=== PATIENT | female | born 1985 | race Caucasian/White ===

== ENCOUNTER 2018-11-07 14:03 | Emergency (ER) | payer MEDICAID, MEDICARE ==
[~2018-11-07] VITALS: Ht 162.6 cm; Wt 95.3 kg
[2018-11-07 14:19] VITALS: BP_SYST 143
--- NOTE | 2018-11-07 14:25 | NUR ---
Patient triaged and placed in waiting room. VSS and patient appears in no acute distress at this time. Accompanied by SELF, awaiting available bed, and MD notified of need for MSE.
--- NOTE | 2018-11-07 16:29 | NUR ---
Pt placed in bed 8
--- NOTE | 2018-11-07 16:32 | NUR ---
Pt AAOx4 ambulated into ED c/o 08/07 L shoulder pain x 1 month with increasing pain and numbness today. Pt denies trauma, but states it may be related to overuse. Pain relieved when L arm supported. Sling provided at triage. No other injuries/complaints per pt/noted. Will continue to monitor.
--- NOTE | 2018-11-07 17:21 | NUR ---
Pt resting comfortably in bed with no signs of distress. Will continue to monitor.
--- NOTE | 2018-11-07 18:14 | NUR ---
ER Dr. Galvan at bedside examining patient.
[2018-11-07] MEDS: KETOROLAC TROMETHAMINE 60 MG/2 ML VIAL IM ONE (18:22)
--- NOTE | 2018-11-07 18:24 | NUR ---
Toradol 60mg IM to R deltoid administered. Pt tolerated well. No adverse reactions noted. Will continue to monitor.
--- NOTE | 2018-11-07 19:10 | NUR ---
Patient given written and verbal discharge instructions and verbalizes understanding. ER MD Galvan discussed with patient the results and treatment provided. Patient in stable condition. ID arm band removed. Rx of Ackerman given. Patient educated on pain management and to follow up with PMD. Pain Scale 0. Opportunity for questions provided and answered. Medication side effect fact sheet provided.
[2018-11-07 19:11] VITALS: BP_SYST 132
== END 2018-11-07 19:10 | disposition home or self-care (01) ==
LOC: SED 14:03
DX: M75.92 Shoulder lesion, unspecified, left shoulder (principal); R03.0 Elevated blood-pressure reading, without diagnosis of hypertension; Z88.0 Allergy status to penicillin
CPT/HCPCS: 73030; 96372; 99283; J1885

== ENCOUNTER 2021-04-28 23:27 | Emergency (ER) | payer MEDICAID ==
[~2021-04-28] VITALS: Ht 162.6 cm; Wt 90.7 kg
[2021-04-28 23:45] VITALS: BP_SYST 129
[2021-04-29] MEDS ORDERED: NACL 0.9% 1,000 ML IV ONE
[2021-04-29 00:32] LABS: BASOPHILS # (AUTO) 0.2 K/uL (0.0-0.2); BASOPHILS % (AUTO) 1.9 % (0.0-2.0); EOSINOPHILS # (AUTO) 0.1 K/uL (0.0-0.4); HEMOGLOBIN 11.9 g/dL (12.0-16.0); LYMPHOCYTES # (AUTO) 2.7 K/uL (1.0-5.5); LYMPHOCYTES % (AUTO) 25.4 % (20.5-51.5); MEAN CORPUSCULAR HEMOGLOBIN 32 pg (27-31); MEAN CORPUSCULAR HGB CONC 34 % (32-36); MEAN CORPUSCULAR VOLUME 93 fL (79.0-98.0); MONOCYTES # (AUTO) 0.4 K/uL (0.0-1.0); NEUTROPHILS # (AUTO) 7.3 K/uL (1.8-7.7); NEUTROPHILS % (AUTO) 67.7 % (40.0-70.0); PLATELET COUNT (AUTO) 206 K/uL (130-430); RED BLOOD CELL COUNT(AUTO) 3.74 MIL/uL (4.2-6.2); RED CELL DISTRIBUTION WIDTH 12.6 % (9.0-15.0); WHITE BLOOD COUNT (AUTO) 10.8 K/uL (4.8-10.8)
[2021-04-29 00:38] LABS: BILIRUBIN,URINE NEGATIVE (NEGATIVE); BLOOD, URINE 1+ (NEGATIVE); CLARITY/URINE CLEAR (CLEAR); COLOR,URINE YELLOW (YELLOW); GLUCOSE,URINE NEGATIVE (NEGATIVE); KETONES,URINE NEGATIVE (NEGATIVE); LEUKOCYTE ESTERASE ,URINE NEGATIVE (NEGATIVE); NITRITE, URINE NEGATIVE (NEGATIVE); PROTEIN URINE NEGATIVE (NEGATIVE); UROBILINOGEN,URINE 0.2 (0.2-1.0)
[2021-04-29 00:44] LABS: CALCIUM 8.7 mg/dL (8.4-11.0); CREATININE 0.68 mg/dL (0.55-1.30); POTASSIUM 3.4 mmol/L (3.5-5.1)
[2021-04-29 00:48] LABS: BACTERIA,URINE RARE /HPF (None Seen); WBC,URINE 0-3 /HPF (0-3)
[2021-04-29 01:10] LABS: ALBUMIN 3.6 g/dL (3.4-4.8); TOTAL BILIRUBIN 0.2 mg/dL (0.0-1.0)
[2021-04-29] MEDS ORDERED: PHE25 PO (03:42)
[2021-04-29] MEDS ORDERED: ACET1TAB23 PO (03:42)
[2021-04-29] MEDS ORDERED: PROM25SU57 RC (03:42)
[2021-04-29 03:55] VITALS: BP_SYST 129
== END 2021-04-29 03:55 | disposition home or self-care (01) ==
LOC: SED 23:27
DX: O20.0 Threatened abortion (principal); Z3A.13 13 weeks gestation of pregnancy; Z88.0 Allergy status to penicillin
CPT/HCPCS: 36415; 76805; 80053; 81000; 81025; 84702; 85025; 86900; 86901; 96360; 99284; J7030

== ENCOUNTER 2021-12-30 21:39 | Emergency (ER) | payer MEDICAID ==
[~2021-12-30] VITALS: Ht 162.6 cm; Wt 90.7 kg
[~2021-12-30 21:39] MED LIST: PHE25 PO; PROM25SU57 RC
[2021-12-30 21:49] VITALS: BP_SYST 134
[2021-12-30] MEDS ORDERED: NACL 0.9% 1,000 ML IV ONE (22:45)
[2021-12-30] MEDS ORDERED: PROCHLORPERAZINE EDISYLATE 10 MG/2 ML VIAL IVP ONE (22:45)
[2021-12-30] MEDS ORDERED: MORPHINE 4 MG INJ. 4 MG/ML VIAL IVP ONE (22:45)
[2021-12-30 23:40] LABS: CLARITY/URINE SLIGHTLY CLOUDY (CLEAR); COLOR,URINE BROWN (YELLOW)
[2021-12-30 23:41] LABS: BILIRUBIN,URINE 1+ (NEGATIVE); BLOOD, URINE 3+ (NEGATIVE); GLUCOSE,URINE NEGATIVE (NEGATIVE); KETONES,URINE NEGATIVE (NEGATIVE); PROTEIN URINE 1+ (NEGATIVE)
[2021-12-30 23:42] LABS: LEUKOCYTE ESTERASE ,URINE NEGATIVE (NEGATIVE); NITRITE, URINE NEGATIVE (NEGATIVE)
[2021-12-30 23:56] LABS: BASOPHILS % (AUTO) 0.3 % (0.0-2.0); EOSINOPHILS % (AUTO) 0.3 % (0.0-4.0); HEMATOCRIT 41.4 % (36-48); HEMOGLOBIN 13.6 g/dL (12.0-16.0); LYMPHOCYTES # (AUTO) 2.9 K/uL (1.0-5.5); MEAN CORPUSCULAR HEMOGLOBIN 29 pg (27-31); MEAN CORPUSCULAR HGB CONC 33 % (32-36); MEAN CORPUSCULAR VOLUME 89 fL (79.0-98.0); MONOCYTES # (AUTO) 0.5 K/uL (0.0-1.0); MONOCYTES % (AUTO) 4.2 % (1.7-9.3); NEUTROPHILS # (AUTO) 9.1 K/uL (1.8-7.7); NEUTROPHILS % (AUTO) 72.2 % (40.0-70.0); PLATELET COUNT (AUTO) 266 K/uL (130-430); RED BLOOD CELL COUNT(AUTO) 4.63 MIL/uL (4.2-6.2); RED CELL DISTRIBUTION WIDTH 14.5 % (9.0-15.0); WHITE BLOOD COUNT (AUTO) 12.5 K/uL (4.8-10.8)
[2021-12-31 00:12] LABS: CALCIUM 8.4 mg/dL (8.4-11.0); CREATININE 0.64 mg/dL (0.55-1.30); POTASSIUM 3.8 mmol/L (3.5-5.1)
[2021-12-31] MEDS ORDERED: HYDROmorphone 1 MG/ML INJ. CARTRIDGE IVP ONE ×2 (00:15→02:15)
[2021-12-31] MEDS ORDERED: CLIN-22 PO (05:11)
[2021-12-31] MEDS ORDERED: ONDA-8 TL (05:11)
[2021-12-31] MEDS ORDERED: HYDR-3917 PO (05:11)
[2021-12-31 05:23] VITALS: BP_SYST 121
[2021-12-31] MEDS ORDERED: HYDROcodone/ACETAMIN 5-325 MG TAB (NORCO/ VICODIN) PO ONE (05:45)
[2021-12-31 08:34] LABS: ALBUMIN 4.1 g/dL (3.4-4.8); TOTAL BILIRUBIN 0.4 mg/dL (0.0-1.0)
== END 2021-12-31 06:09 | disposition home or self-care (01) ==
LOC: SED 21:39
DX: N83.201 Unspecified ovarian cyst, right side (principal); K80.50 Calculus of bile duct without cholangitis or cholecystitis without obstruction; Z88.0 Allergy status to penicillin; Z79.899 Other long term (current) drug therapy
CPT/HCPCS: 36415; 74177; 76376; 76830; 76857; 80053; 81003; 81025; 83690; 85025; 96361; 96374; 96375; 96376; 99285; J0780; J1170; J7030; Q9967